=== PATIENT | female | born 1985 | race Caucasian/White ===

== ENCOUNTER 2019-04-06 12:14 | Emergency (ER) | payer BC, OTHER ==
[2019-04-06 12:36] VITALS: BP 150/87
[2019-04-06 13:01] LABS: CLARITY,URINE TURBID (CLEAR)
[2019-04-06 13:06] LABS: BILIRUBIN,URINE COLOR INTERFERENCE (NEGATIVE)
[2019-04-06 13:07] LABS: RBC,URINE TNTC /HPF (0-5)
[2019-04-06 13:08] LABS: AMORPHOUS SEDIMENT,UR Few /LPF; BACTERIA,URINE Few /HPF (None Seen); SQUAMOUS EPITHELIAL CELL,UR FEW Squamous (<= Few)
[2019-04-06 13:11] LABS: HCG UR QUAL NEGATIVE
--- NOTE | 2019-04-06 14:31 | ED Physician Documentation ---
PD HPI FEMALE - Stated complaint Stated Complaint: FEMALE - Chief complaint Chief Complaint: UTI - History obtained from History obtained from: Patient - History of Present Illness Timing - onset: Today (this morning) Timing - duration: Days (1) Timing - details: Abrupt onset, Still present Associated symptoms: Dysuria, Urinary frequency. No: Fever, Back pain, Vaginal discharge Contributing factors: No: Exposed to STD Similar symptoms before: Diagnosis (UTI) Review of Systems Constitutional: denies: Fever, Chills : reports: Dysuria, Frequency. denies: Discharge, Irregular menses PD PAST MEDICAL HISTORY - Past Medical History Past Medical History: No - Present Medications Home Medications: Ambulatory Orders Medication Instructions Recorded Confirmed Doxycycline Monohydrate 100 mg PO BID #14 tablet 04/06/19 Fluconazole [Diflucan] 150 mg PO Q3D #2 tablet 04/06/19 Hydrocodone/Acetaminophen 1 each PO Q6H PRN #12 tablet 04/06/19 [Hydrocodon-Acetaminophen 5-325] Naproxen 375 mg PO BID #20 tablet 04/06/19 - Allergies Allergies/Adverse Reactions: Allergies Allergy/AdvReac Type Severity Reaction Status Date / Time Sulfa (Sulfonamide Allergy Anxiety Verified 04/06/19 12:31 Antibiotics) PD ED PE NORMAL - Vitals Vital signs reviewed: Yes - General General: Alert and oriented X 3, No acute distress, Well developed/nourished - Female Female : Deferred - Back Back: No CVA TTP - Derm Derm: Normal color, Warm and dry - Neuro Neuro: Alert and oriented X 3, No motor deficit, Normal speech Results - Vitals Vitals: Oxygen O2 Source Room air - Labs Labs: Microbiology 04/06/19 12:24 Urine Culture - Preliminary Urine,Clean Catch Laboratory Tests 04/06/19 04/06/19 12:24 12:41 Urine Color ORANGE Urine Clarity TURBID Urine pH Ur Specific [place] Urine Protein Urine Glucose (UA) Urine Ketones Urine Occult Blood Urine Nitrite Urine Bilirubin COLOR INTERFERENCE Urine Urobilinogen Ur Leukocyte Esterase Urine RBC TNTC H Urine WBC 6-10 H Ur Squamous Epith Cells FEW Squamous Amorphous Sediment Few Urine Bacteria Few Ur Microscopic Review INDICATED Urine Culture Comments INDICATED Urine HCG, Qual NEGATIVE PD MEDICAL DECISION MAKING - ED course Complexity details: reviewed results, considered differential, d/w patient Departure - Departure Disposition: 01 Home, Self Care Clinical Impression: Urinary tract infection Qualifiers: Urinary tract infection type: acute cystitis Hematuria presence: with hematuria Qualified Code(s): N30.01 - Acute cystitis with hematuria Condition: Stable Record reviewed to determine appropriate education?: Yes Instructions: ED UTI Cystitis Female Follow-Up: Katrina Sanchez PA [Primary Care Provider] - Prescriptions: Doxycycline Monohydrate 100 mg PO BID #14 tablet Fluconazole [Diflucan] 150 mg PO Q3D #2 tablet Hydrocodone/Acetaminophen [Hydrocodon-Acetaminophen 5-325] 1 each PO Q6H PRN #12 tablet PRN Reason: pain Naproxen 375 mg PO BID #20 tablet Comments: Stay well-hydrated. Continue the Azo as needed for discomfort. You urine culture will result in a couple of days and see if we need to modify the antibiotics at that point. Your test is negative. This may be an inflammatory response as well and so in addition to the doxycycline antibiotic, use naproxen anti-inflammatory as directed for a week. Add Tylenol or pain medicine as needed for discomfort. I would anticipate improvement over the next day or 2. With concern for potential yeast infection from the antibiotics, you can use the Diflucan antifungal at 3 days and 3 days after that. Discharge Date/Time: 04/06/19 15:00
[2019-04-06] MEDS ORDERED: DOXYCYCLINE 100 MG TABLET PO STA (14:43)
[2019-04-06] MEDS ORDERED: HYDROcod/ACETAM 5/325 MG TABLET PO STA (14:43)
[2019-04-06] MEDS ORDERED: NAPROXEN 250 MG TABLET PO STA (14:43)
== END 2019-04-06 15:00 | disposition home or self-care (01) ==
LOC: ED 12:14
DX: N30.01 Acute cystitis with hematuria (principal)
CPT/HCPCS: 81001; 81025; 87077; 87086; 87181; 99283; A9270; 81003

== ENCOUNTER 2020-03-26 19:41 | Outpatient (CLI) | payer OTHER ==
--- NOTE | 2020-03-27 08:20 | Ultrasound Report ---
PROCEDURE: OB First Trimester w/TV INDICATIONS: TEST POS, SPOTTING OUTSIDE/PRIOR DATING DATA: Last menstrual period (LMP): 02/11/2020. LMP-based estimated date of delivery (ZURI): 11/17/2020. First dating scan (date and location): 03/26/2020. Estimated date of delivery (ZURI) from first dating scan: 11/20/2020. TECHNIQUE: Real-time scanning was performed of the fetus and maternal pelvic organs, with image documentation. Endovaginal scanning was also performed to better visualize the fetus and maternal ovaries. COMPARISON: None FINDINGS: Embryo: There is a single living intrauterine gestation with heart rate 117 bpm and with crown-rump length of 0.27 cm, correlating with a gestational age of 5 weeks 6 days, +/- 5 days. There is a small adjacent subchorionic hemorrhage measuring 1.2 x 1.9 x 2.3 cm Measurement variability in dating: +/- 4 weeks by LMP, +/- 7 days by mean sac diameter (use before 6 weeks gestation if crown-rump length not able to be measured), +/- 5 days by crown-rump length (6-12 weeks gestation). Maternal organs: Ovaries normal considering gestational status. IMPRESSION: 5 week 6 day gestational age, viable gestation, small adjacent subchorionic hemorrhage. Note is made of a small adjacent subchorionic hemorrhage measuring only 2.3 cm in maximal dimension. Reviewed by: August Nolasco MD on 03/27/2020 8:18 AM PST Approved by: August Nolasco MD on 03/27/2020 8:18 AM PST Station ID: [id number]
== END 2020-03-26 19:42 | disposition home or self-care (01) ==
LOC: DI 19:41
PROVIDERS: ATTEND Nurse Practitioner Family
DX: Z32.01 Encounter for pregnancy test, result positive (principal)

== ENCOUNTER 2020-09-24 12:00 | Outpatient (CLI) | payer OTHER | END 2020-09-24 23:59 | disposition home or self-care (01) | LOC: LAB.R 12:00 | PROVIDERS: ATTEND Physician Assistant Medical | DX: R30.0 Dysuria (principal) | CPT/HCPCS: 87086 ==